=== PATIENT | male | born 1965 | race Two or more races ===

== ENCOUNTER 2022-09-18 07:37 | Day surgery (SDC) | payer OTHER ==
[~2022-09-18] VITALS: Ht 177.8 cm; Wt 85.3 kg
[2022-09-18] MEDS ORDERED: diphenhydrAMINE 50 MG/ML VIAL ONE (08:30)
[2022-09-18] MEDS ORDERED: fentaNYL citrate 0.05 MG/ML VIAL ONE (08:31)
[2022-09-18] MEDS ORDERED: MIDAZOLAM 5 MG/5 ML VIAL ONE (08:31)
[2022-09-18] MEDS ORDERED: LIDOCAINE 2% 100 MG/5 ML UJET TP ONE (08:31)
[2022-09-18] MEDS ORDERED: diphenhydrAMINE 50 MG/ML VIAL IVP ONE (14:20)
[2022-09-18] MEDS ORDERED: fentaNYL citrate 0.05 MG/ML VIAL IVP ONE (14:20)
[2022-09-18] MEDS ORDERED: MIDAZOLAM 2 MG/2 ML VIAL IVP ONE (14:20)
== END 2022-09-18 11:24 | disposition home or self-care (01) ==
LOC: MDS 07:37 → MMU 07:38 → MDS 11:24
PROVIDERS: ATTEND Internal Medicine Gastroenterology
DX: Z12.11 Encounter for screening for malignant neoplasm of colon (principal); D12.8 Benign neoplasm of rectum; I10 Essential (primary) hypertension; Z20.822 Contact with and (suspected) exposure to COVID-19; Z79.899 Other long term (current) drug therapy
CPT/HCPCS: 45385; 87426; J1200; J2250; J3010